=== PATIENT | male | born 1995 ===

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

== ENCOUNTER 2018-07-15 08:59 | Emergency (ER) | payer OTHER ==
[2018-07-15 08:59] VITALS: BMI 32.5
--- NOTE | 2018-07-15 09:35 | ED PDOC ---
Arrival/HPI - General Chief Complaint: Abdominal Pain Historian: Patient - History of Present Illness Narrative History of Present Illness (Text): 07/15/18 09:34 23 y/o male, pmh including appendicitis, nkda, c/o lower abdominal pain on and off x 1 week. pt. stated that he has lower abdominal pain and off x 1 week, associated with nausea, couple episode of vomiting, diarrhea started today, no fever or chills, no night sweat, no rash, no dizziness, no hematuria, no urinary symptoms, no testicular complaints, no other medical or psychological complaints. Past Medical History - Provider Review Nursing Documentation Reviewed: Yes - Past History Past History: No Previous - Infectious Disease Hx of Infectious Diseases: None - Tetanus Immunization Tetanus Immunization: Up to Date - Psychiatric Hx Psychophysiologic Disorder: No Hx Substance Use: No - Surgical History Hx Appendectomy: Yes Hx Orthopedic Surgery: Yes (L hand sx) - Anesthesia Hx Anesthesia: Yes Hx Anesthesia Reactions: No Hx Malignant Hyperthermia: No - Suicidal Assessment Feels Threatened In Home Enviroment: No Family/Social History - Physician Review Nursing Documentation Reviewed: Yes Family/Social History: Unknown Family HX Smoking Status: Never Smoked Hx Alcohol Use: Yes Hx Substance Use: No Hx Substance Use Treatment: No Allergies/Home Meds Allergies/Adverse Reactions: Allergies No Known Allergies Allergy (Verified 07/15/18 09:17) Review of Systems - Review of Systems Constitutional: absent: Fatigue, Fevers Eyes: absent: Vision Changes ENT: absent: Hearing Changes Respiratory: absent: SOB, Cough Cardiovascular: absent: Chest Pain Gastrointestinal: Abdominal Pain, Diarrhea, Nausea, Vomiting Musculoskeletal: absent: Arthralgias, Back Pain Skin: absent: Rash, Pruritis Neurological: absent: Headache, Dizziness, Focal Weakness Psychiatric: absent: Anxiety, Depression, Suicidal Ideation Physical Exam Vital Signs Reviewed: Yes Vital Signs Temp Pulse Resp BP Pulse Ox 07/15/18 09:17 99.2 F 77 16 142/94 H 96 Temperature: Afebrile Blood Pressure: Hypertensive Pulse: Regular Respiratory Rate: Normal Appearance: Positive for: Well-Appearing, Non-Toxic, Comfortable Pain Distress: Moderate Mental Status: Positive for: Alert and Oriented X 3 - Systems Exam Head: Present: Atraumatic, Normocephalic Pupils: Present: PERRL Extroacular Muscles: Present: EOMI Conjunctiva: Present: Normal Mouth: Present: Moist Mucous Membranes Neck: Present: Normal Range of Motion Respiratory/Chest: Present: Clear to Auscultation, Good Air Exchange. No: Respiratory Distress, Accessory Muscle Use Cardiovascular: Present: Regular Rate and Rhythm, Normal S1, S2. No: Murmurs Abdomen: Present: Tenderness (on the lower abdomen region), Normal Bowel Sounds. No: Distention, Peritoneal Signs, Rebound, Guarding, Scars Back: Present: Normal Inspection Upper Extremity: Present: Normal Inspection. No: Cyanosis, Edema Lower Extremity: Present: Normal Inspection. No: Edema Neurological: Present: GCS=15, CN II-XII Intact, Speech Normal, Motor Func Grossly Intact, Normal Cerebellar Funct, Gait Normal, Memory Normal Skin: Present: Warm, Dry, Normal Color. No: Rashes Psychiatric: Present: Alert, Oriented x 3, Normal Insight, Normal Concentration Medical Decision Making ED Course and Treatment: 07/15/18 09:35 -labs -CT abdomen and pelvis -IVF/pepcid/zofran/toradol -observe and reassess 07/15/18 13:50 -Labs are non significant -CT abdomen and pelvis Numerous subcentimeter lymph nodes in the small bowel mesentery and nodes medial to the cecum and ascending colon. Findings suspicious for mesenteric adenitis. No other significant abnormality. -UA show no bacterial UTI but there is incidental yeast, diflucan ordered -Pt. feels well, no fever or chills, vitally stable, no pain now, will discharge home with supportive care and bactrim ds -Discharge home with pepcid/zofran/bactrim ds (don't start the antibiotic unless the diarrhea persist), avoid dairy diet, BRAT diet, follow up with your own pmd and GI within 2 days, return to the ER for any new or worsening signs or symptoms. - RAD Interpretation Radiology Orders: 07/15/18 09:31 ABD & PELVIS IV CONTRAST ONLY [CT] Stat Date of service: 07/15/2018 PROCEDURE: CT Abdomen and Pelvis with contrast HISTORY: lower abdominal pain/nausea/vomiting/diarrhea? COMPARISON: None. TECHNIQUE: Contrast dose: 100 mL Omnipaque 300 Radiation dose: Total exam DLP = 786.97 mGy-cm. This CT exam was performed using one or more of the following dose reduction techniques: Automated exposure control, adjustment of the mA and/or kV according to patient size, and/or use of iterative reconstruction technique. FINDINGS: LOWER THORAX: Unremarkable. LIVER: Unremarkable. No gross lesion or ductal dilatation. GALLBLADDER AND BILE DUCTS: Unremarkable. PANCREAS: Unremarkable. No gross lesion or ductal dilatation. SPLEEN: Unremarkable. ADRENALS: Unremarkable. No mass. KIDNEYS AND URETERS: Unremarkable. No hydronephrosis. No solid mass. VASCULATURE: Unremarkable. No aortic aneurysm. No aortic atherosclerotic calcification or mural plaque present. BOWEL: Unremarkable. No obstruction. No gross mural thickening. APPENDIX: Status post appendectomy. Postsurgical change at cecal apex. PERITONEUM: Unremarkable. No free fluid. No free air. LYMPH NODES: Numerous subcentimeter lymph nodes are seen within the small bowel mesentery. There are subcentimeter nodes medial to the cecum and ascending colon. Findings suggestive of mesenteric adenitis. BLADDER: Unremarkable. REPRODUCTIVE: Prostate BONES: No acute fracture. OTHER FINDINGS: None. IMPRESSION: Numerous subcentimeter lymph nodes in the small bowel mesentery and nodes medial to the cecum and ascending colon. Findings suspicious for mesenteric adenitis. No other significant abnormality. Tobacco Wrapping Machine Tender: Radiologist - Medication Orders Current Medication Orders: Famotidine (Pepcid) 20 mg IVP STAT STA Stop: 07/15/18 09:32 Ketorolac Tromethamine (Toradol) 30 mg IVP STAT STA Stop: 07/15/18 09:32 Ondansetron HCl (Zofran Inj) 4 mg IVP STAT STA Stop: 07/15/18 09:32 - PA / CUSTOMER RELATIONS CONSULTANT / Resident Statement MD/DO has reviewed & agrees with the documentation as recorded. Disposition/Present on Arrival - Present on Arrival Any Indicators Present on Arrival: No History of DVT/PE: No History of Uncontrolled Diabetes: No Urinary Catheter: No History of Decub. Ulcer: No History Surgical Site Infection Following: None - Disposition Have Diagnosis and Disposition been Completed?: Yes Diagnosis: Candidiasis, Mesenteric adenitis Disposition: HOME/ ROUTINE Disposition Time: 13:55 Patient Plan: Discharge Patient Problems: Current Active Problems Problem Status Onset Candidiasis Acute Condition: IMPROVED Discharge Instructions (ExitCare): Mesenteric Lymphadenitis (DC) Additional Instructions: -Discharge home with pepcid/zofran/bactrim ds (don't start the antibiotic unless the diarrhea persist), avoid dairy diet, BRAT diet, follow up with your own pmd and GI within 2 days, return to the ER for any new or worsening signs or symptoms. Prescriptions: Famotidine [Pepcid] 20 mg PO BID #20 tab Ondansetron [Zofran] 4 mg PO Q8H PRN #10 tab PRN Reason: Nausea/Vomiting Sulfamethoxazole/Trimethoprim [Bactrim DS 800 mg-160 mg] 1 tab PO BID #14 tab Referrals: Chetna Ewing MD [Medical Doctor] - Follow up with primary [facility] [place] [Outside] - Follow up with primary Forms: [facility] (Macedonian), WORK NOTE, SCHOOL NOTE
[2018-07-15] MEDS ORDERED: Iohexol 350 MG/100 ML VIAL ONE (10:53)
[2018-07-15 10:58] LABS: URINE BILIRUBIN NEGATIVE (NEGATIVE); URINE BLOOD SMALL (NEGATIVE); URINE GLUCOSE (UA) NEGATIVE (NEGATIVE); URINE LEUKOCYTE ESTERASE NEGATIVE Leu/uL (NEGATIVE); URINE PROTEIN TRACE mg/dL (<30 mg/dL)
[2018-07-15 10:59] LABS: URINE COLOR YELLOW (YELLOW)
[2018-07-15 11:00] LABS: URINE APPEARANCE CLEAR (CLEAR)
[2018-07-15 11:08] LABS: URINE WBC 0 - 2 /hpf (0-6)
[2018-07-15 11:09] LABS: URINE BACTERIA MANY /hpf
[2018-07-15 11:22] LABS: BASO # 0.02 K/mm3 (0.0-2.0); BASO % 0.3 % (0.0-3.0); EOS # 0.1 (0.0-0.7); EOS % 0.6 % (1.5-5.0); HEMOGLOBIN 15.5 g/dL (14.0-18.0); LYMPH # 1.4 (1.2-3.4); LYMPH % 17.7 % (22.0-35.0); MEAN CELL VOLUME 79.7 fl (80.0-105.0); MEAN CORPUSCULAR HEMOGLOBIN 26.7 pg (25.0-35.0); MEAN CORPUSCULAR HGB CONC 33.5 g/dl (31.0-37.0); MEAN PLATELET VOLUME 9.1 fl (7.0-11.0); MONO # 0.9 (0.1-0.6); MONO % 11.6 % (1.0-6.0); RBC 5.8 10^6/uL (3.5-6.1); RED CELL DISTRIBUTION WIDTH 13.3 % (11.5-14.5)
[2018-07-15 11:27] LABS: ALB/GLOB RATIO 1.3 (1.1-1.8); ALBUMIN 4.4 g/dL (3.0-4.8); ALT/SGPT 59 U/L (7-56); AST/SGOT 43 U/L (17-59); BLOOD UREA NITROGEN 10 mg/dL (7-21); CALCIUM 8.7 mg/dL (8.4-10.5); GFR NON-AFRICAN AMERICAN > 60; LIPASE 47 U/L (23-300)
--- NOTE | 2018-07-15 13:25 | CT ---
Date of service: 07/15/2018 PROCEDURE: CT Abdomen and Pelvis with contrast HISTORY: lower abdominal pain/nausea/vomiting/diarrhea? COMPARISON: None. TECHNIQUE: Contrast dose: 100 mL Omnipaque 300 Radiation dose: Total exam DLP = 786.97 mGy-cm. This CT exam was performed using one or more of the following dose reduction techniques: Automated exposure control, adjustment of the mA and/or kV according to patient size, and/or use of iterative reconstruction technique. FINDINGS: LOWER THORAX: Unremarkable. LIVER: Unremarkable. No gross lesion or ductal dilatation. GALLBLADDER AND BILE DUCTS: Unremarkable. PANCREAS: Unremarkable. No gross lesion or ductal dilatation. SPLEEN: Unremarkable. ADRENALS: Unremarkable. No mass. KIDNEYS AND URETERS: Unremarkable. No hydronephrosis. No solid mass. VASCULATURE: Unremarkable. No aortic aneurysm. No aortic atherosclerotic calcification or mural plaque present. BOWEL: Unremarkable. No obstruction. No gross mural thickening. APPENDIX: Status post appendectomy. Postsurgical change at cecal apex. PERITONEUM: Unremarkable. No free fluid. No free air. LYMPH NODES: Numerous subcentimeter lymph nodes are seen within the small bowel mesentery. There are subcentimeter nodes medial to the cecum and ascending colon. Findings suggestive of mesenteric adenitis. BLADDER: Unremarkable. REPRODUCTIVE: Prostate BONES: No acute fracture. OTHER FINDINGS: None. IMPRESSION: Numerous subcentimeter lymph nodes in the small bowel mesentery and nodes medial to the cecum and ascending colon. Findings suspicious for mesenteric adenitis. No other significant abnormality.
[2018-07-15 14:18] VITALS: BP 125/69; PULSE 79; RESP 19; TEMP 97.8; O2SAT 99
== END 2018-07-15 14:17 | disposition home or self-care (01) ==
LOC: ED 08:59
DX: I88.0 Nonspecific mesenteric lymphadenitis (principal); B37.9 Candidiasis, unspecified
CPT/HCPCS: 74177; 80053; 81001; 83690; 83735; 85025; 96374; 96375; 99283; J1885; J2405; Q9967